=== PATIENT | male | born 1990 | race Caucasian/White ===

== ENCOUNTER 2017-02-25 16:17 | Emergency (ER) | payer OTHER ==
[~2017-02-25] VITALS: Ht 180.3 cm; Wt 65.8 kg
--- NOTE | 2017-02-25 17:09 | ED CARDIAC/CP/PALPITATIONS ---
History of Present Illness General Chief Complaint: General Adult Stated Complaint: FEVER NAUSEA Source: patient Exam Limitations: no limitations Vital Signs & Intake/Output Vital Signs & Intake/Output Vital Signs Date Time Temp Pulse Resp B/P B/P Pulse O2 O2 Flow FiO2 Mean Ox Delivery Rate 02/25 2101 97.5 02/25 1950 97.5 91 18 105/58 100 02/25 1821 98.9 109 18 105/58 97 Room Air 02/25 1732 99 Room Air 02/25 1636 101.5 02/25 1622 101.5 115 15 121/78 95 Room Air Room Air Allergies Coded Allergies: No Known Allergies (02/25/17) Reconcile Medications No Known Home Medications Triage Note: PT TO ED FOR C/C OF FEVER, HEADACHE, +N/V. DENIES DIARRHEA. PT DOES IV HEROIN, DID THREE BAGS TODAY. DENIES ANY ABCESSES OR AREAS OF REDNESS TO BODY. +BLURRY VISION TODAY WITH HEADACHE Triage Nurses Notes Reviewed? yes Onset: Gradual Duration: constant Timing: recent history Quality/Severity: moderate Radiation: no radiation Activities at Onset: none HPI: Patient is a 27-year-old male with a past medical history of IV heroin drug use for approximately urine a half where he states that he does approximate 3 bags a day where he injects to his left forearm where he states in the last 48 hours he 's had complains of gradual onset of high fever, generalized weakness and fatigue headaches and nausea without emesis. Patient was evaluated at urgent care facility today had negative strep. Patient denies any photophobia neck pain neck stiffness chest pain arm pain and jaw pain abdominal pain or skin erythema rash or discharge. Patient does smoke tobacco. Past History Travel History Traveled to [place] past 21 day No Medical History Any Pertinent Medical History? none Neurological: NONE EENT: NONE Cardiovascular: NONE Respiratory: NONE Gastrointestinal: NONE Hepatic: NONE Renal: NONE Musculoskeletal: NONE Psychiatric: NONE Endocrine: NONE Blood Disorders: NONE Cancer(s): NONE GENERAL LABORER/Reproductive: NONE Surgical History Surgical History: non-contributory Psychosocial History What is your primary language Irish Tobacco Use: Current Daily Use Daily Tobacco Use Amount/Type: => 5 Cigarettes daily ETOH Use: denies use Illicit Drug Use: heroin Family History Hx Contributory? No Review of Systems Review of Systems Constitutional: Reports: see HPI, fever, malaise, weakness. EENTM: Reports: no symptoms. Respiratory: Reports: no symptoms. Cardiovascular: Reports: no symptoms. GI: Reports: see HPI, nausea. Denies: abdominal pain. Genitourinary: Reports: no symptoms. Musculoskeletal: Reports: no symptoms. Skin: Reports: no symptoms. Neurological/Psychological: Reports: see HPI, headache. Hematologic/Endocrine: Reports: no symptoms. Immunologic/Allergic: Reports: no symptoms. All Other Systems: Reviewed and Negative Physical Exam Physical Exam General Appearance: no apparent distress, alert Cardiovascular: regular rate/rhythm, NO MURMUR Comments: Well-developed well-nourished person in no acute distress HEENT: Normal EENT exam, extraocular motion intact, no nystagmus. Pupils equally round and reactive to light and accommodation. Nose is atraumatic. External auditory canal and Tympanic membranes clear. Pharynx normal. No swelling or edema. Neck: Supple, no lymphadenopathy, normal range of motion without pain or tenderness Back: Nontender, no CVA tenderness. Cardiovascular: Regular rate and rhythms no murmurs rubs or gallops, normal JVP Respiratory: Chest nontender. No respiratory distress.breath sounds clear to auscultation bilaterally Abdomen: Soft, nontender nondistended, no appreciable organomegaly. Normal bowel sounds. No ascites Extremity: No edema, no calf tenderness to palpation, normal and equal pulses. Negative Brudzinski and negative Kernig sign Neuro: Alert oriented x3, motor sensory normal, Skin: No appreciable rash on exposed skin, skin is warm and dry. Psych: Mood and affect is normal, memory and judgment is normal. Core Measures ACS in differential dx? No Severe Sepsis Present: No Septic Shock Present: No Progress Differential Diagnosis: AMI, aortic dissection, atrial fibrillation, cholecystitis, CHF/pulm edema, costochondritis, hyperkalemia, hypovolemia, hyperthyroid, hyperventilation, intracranial hemorrhage, musculoskeletal pain, myocarditis, pancreatitis, pericarditis, pneumonia, pneumothorax, PSVT, pulmonary embolism, PUD/GERD, PVCs/PACs, respiratory failure, rib fracture, sepsis, unstable angina, V-fib/V-Tach, WPW syndrome, INFECTIVE ENDOCARDITIS Plan of Care: Orders Procedure Date/time Status Add-on Test (ER Only) 02/25 1911 Active ETHANOL 02/25 172 Complete Add-on Test (ER Only) 02/25 1717 Active Telemetry/Environmental Service Aide 02/25 1717 Active URINE DRUG SCREEN FOR ER ONLY 02/25 171 Complete EKG 02/25 1717 Active BLOOD CULTURE 02/25 1701 Active URINALYSIS 02/25 170 Complete TROPONIN LEVEL 02/25 1701 Complete COMPREHENSIVE METABOLIC PANEL 02/25 170 Complete CBC WITHOUT DIFFERENTIAL 02/25 1701 Complete Current Medications Sig/Amee Start time Last Medication Dose Stop Time Status Admin Clonidine 0.1 MG ONCE ONE 02/25 1800 CAN (Catapres) 02/25 180 Laboratory Tests 02/25/17 1828: Urine Opiates Screen > 4000.00 H, Methadone Screen < 40, Barbiturate Screen < 60, Ur Phencyclidine Scrn < 6.00, Amphetamines Screen , U Benzodiazepines Scrn < 85, Urine Cocaine Screen 173, Urine Cannabis Screen 44.00, Urinalysis LIGHT H , Urine Color YEL, Urine Clarity CLEAR, Urine pH 6.5, Ur Specific [place] 1.020, Urine Protein 100 H, Urine Ketones TRACE H, Urine Nitrite NEG, Urine Bilirubin NEG, Urine Urobilinogen 1.0, Ur Leukocyte Esterase NEG, Ur Microscopic SEDIMENT EXAMINED, Urine WBC RARE, Ur Epithelial Cells RARE, Urine Mucus MOD H, Urine Hemoglobin NEG, Urine Glucose NEG 02/25/17 182: Amphetamines Grp GC/MS Pending, U Amphet Custody Pending, Methamphetamine GC/MS Pending 02/25/17 172: Anion Gap 10, Estimated GFR > 60, BUN/Creatinine Ratio 18.0, Glucose 100 H, Calcium 8.7, Total Bilirubin 0.7, AST 29, ALT 28, Alkaline Phosphatase 44, Troponin I < 0.01, Total Protein 6.8, Albumin 4.0, Globulin 2.8, Albumin/ Globulin Ratio 1.4, CBC w Diff MAN DIFF ORDERED, RBC 3.91 L, MCV 90.0, MCH 29.9 , RDW 13.2, MPV 8.1, Segmented Neutrophils 57, Band Neutrophils 11 H, Lymphocytes 15 L, Monocytes 16 H, Basophils 1, Platelet Estimate ADEQUATE, Normocytic RBCs VERIFIED, Normochromic RBCs VERIFIED, PUBS MCHC 33.2, Fld Total RBCs Counted 100, Serum Alcohol < 10.0 Microbiology 02/26 1828 BLOOD: Blood Culture - RECD 02/25 1815 BLOOD: Blood Culture - RECD 02/26 1724 BLOOD: Blood Culture - RECD Patient on initial examination has no audible murmur on auscultation. Patient was given IV normal saline resuscitation and antipyretics. It is noted to be in by nursing staff the patient was in the bathroom for an excessive long period of time in which we were continuously knocking on the door which security open the door patient was found noted to be injecting IV heroin in the bathroom. He states that he injected 2 bags of heroin. Patient then was changed into hospital scrubs in his was asked to leave the facility. Patient however shows no concern at this time for emergent administration of Narcan he was alert and oriented walking steady gait oxygen saturation 99%. Patient's left arm shows no signs of infection to the IV injection sites. Patient also was inspected thoroughly had no other injection sites were noted. Patient had unremarkable chest x-ray and at this time no concerns of urine infection. At this time there is no clear etiology of patient's fever however endocarditis is of my differential. I strongly advise patient to be admitted for further evaluation and to receive cardiology consultation and echocardiogram to evaluate concerns of endocarditis in which she was aware of his current clinical condition however he stated that he needs to leave to go to court out of state and signed AMA form. The right will pickup patient who presents to the emergency room. Patient was aware of the risks of signing out AMA Patient was strongly advised to discontinue the use of polysubstance abuse He was given referrals for detox programs which he refused inpatient detox in the ER today Patient denies any homicidal or suicidal ideation 2100- PT IS CURRENTLY WAITING FOR A RIDE HOME Discussed disposition plan with Dr. Munoz for handoff (LUÍS VASQUEZ) Diagnostic Imaging: Viewed by Me: Radiology Read. CXR Impression: no acute abnormality, no infiltrates Initial ED EKG: SINUS TACHYCARDIA 110 BPM Hand-Off Endorsed To: DAMIAN MUNOZ MD Endorsed Time: 2105 Comments: PATIENT: MARIVEL OREILLY PRESENT AGE: 26 PATIENT ACCOUNT NO: [id number] : 88 LOCATION: [facility] [place] ORDERING PHYSICIAN: JOSE MANDUJANO MD SERVICE DATE: 02/25/17 EXAM TYPE: RAD - XRY-CHEST XRAY, PA AND LATERAL EXAMINATION: XR CHEST CLINICAL INFORMATION: Pneumonia COMPARISON: None TECHNIQUE: 2 views of the chest were obtained. FINDINGS: The cardiomediastinal silhouette and pulmonary vascularity are normal. The lungs are clear. No pleural effusions or pneumothorax. The visualized bony thorax is unremarkable. IMPRESSION: No acute cardiopulmonary findings. DICTATED BY: BILL BLUE MD DATE/TIME DICTATED:02/25/171847 RED CAP:LIGIA DATE/TIME TRANSCRIBED:02/25/171847 Departure Departure Disposition: LEFT AGAINST MEDICAL ADVICE Condition: Stable Clinical Impression Primary Impression: Heroin abuse Secondary Impressions: Fever Referrals: PATIENT HAS NO PRIMARY CARE DR (PCP/Family) GUMARO TOMLIN,BLANQUITA Quinn Additional Instructions: As discussed YOU ARE leaving AGAINST MEDICAL ADVICE AND YOUR clinical condition could worsen and deteriorate. If symptoms worsen return to the emergency room. On Monday please follow-up and establish operations chief Dr. Bravo. Please discontinue the use of heroin. Please call the list of detox outpatient and inpatient programs for further treatment. Departure Forms: Customer Survey General Discharge Information Prescriptions: Current Visit Scripts No Known Home Medications Critical Care Note Critical Care Note Critical Care Time: non-applicable
[2017-02-25 17:35] LABS: HEMATOCRIT 35.2 % (42-52); MEAN CORPUSCULAR HGB 29.9 PG (27.0-31.0); MEAN CORPUSCULAR HGB CONC 33.2 G/DL (33.0-37.0); MEAN PLATELET VOLUME 8.1 FL (7.4-10.4); PLATELET COUNT 143 /CUMM (130-400); RBC DISTRIBUTION WIDTH 13.2 % (11.5-14.5); RED BLOOD CELL CT 3.91 /CUMM (4.70-6.10); WHITE BLOOD CELL COUNT 10.1 /CUMM (4.8-10.8)
--- NOTE | 2017-02-25 18:52 | RADIOLOGY REPORT ---
EXAMINATION: XR CHEST CLINICAL INFORMATION: Pneumonia COMPARISON: None TECHNIQUE: 2 views of the chest were obtained. FINDINGS: The cardiomediastinal silhouette and pulmonary vascularity are normal. The lungs are clear. No pleural effusions or pneumothorax. The visualized bony thorax is unremarkable. IMPRESSION: No acute cardiopulmonary findings.
[2017-02-25 21:57] VITALS: BP 115/63
== END 2017-02-25 21:58 | disposition left against medical advice (07) ==
LOC: ERH 16:17
PROVIDERS: Emergency Medicine
DX: F11.10 Opioid abuse, uncomplicated (principal); R50.9 Fever, unspecified
CPT/HCPCS: 80324; 80307; 81001; 87040; 93005; 93010; G0480